=== PATIENT | male | born 1995 | race American Indian/Alaskan Native ===

== ENCOUNTER 2019-03-05 09:51 | Emergency (ER) | payer OTHER ==
[2019-03-05 09:57] VITALS: BP 120/61
--- NOTE | 2019-03-05 10:30 | Emergency Department Report ---
Chief Complaint: Dizziness Stated Complaint: GENERAL SICKNESS - HPI History of Present Illness: This is a 24-year-old -[place] male who presents to the emergency room with dizziness and palpitations. Patient states he was out last night and returned home around 0600 and took nyquil for URI symptoms. We awoke from sleep 30 minutes prior to arrival and felt palpitations and dizziness. He was afraid he would have a syncopal episode so he called EMS. He reports feeling sleeping but better than prior arrival. He denies chest pain, shortness of breath, radiating pain, fever, or diaphoresis. - Exam Vital Signs: Vital Signs 03/05/19 09:55 Temperature 98.4 F Pulse Rate 58 L Respiratory 18 Rate Blood Pressure 120/61 O2 Sat by Pulse 98 Oximetry Physical Exam: GENERAL: The patient is well looking, in no acute distress. HEENT: Atraumatic and normocephalic. Pupils are equal, round, reactive to light, and accommodation. Extraocular movements are intact. There is no icterus, cyanosis, or pallor of the conjunctivae. Tympanic membranes normal bilaterally. Nasal turbinates are clear without exudates. Sinuses nontender to percussion. Posterior pharynx is normal. No exudates are noted. CHEST: Air entry is adequate bilaterally with no rhonchi, and crackles. HEART: Sounds 1 and 2 are heard and are normal. Regular rate and rhythm, no tachycardic, murmurs, gallops, or rubs. ABDOMEN: Soft and nontender. Bowel sounds are present and normal. There is no hepatosplenomegaly. SKIN: Without rash. EXTREMITIES: Without edema, cyanosis, or clubbing. MSE screening note: Focused history and physical exam performed. Due to findings the following was ordered: This initial assessment/diagnostic orders/clinical plan/treatment(s) is/are subject to change based on patients health status, clinical progression and re- assessment by fellow clinical providers in the ED. Further treatment and workup at subsequent clinical providers discretion. Patient/guardian urged not to elope from the ED as their condition may be serious if not clinically assessed and managed. ED Medical Decision Making - Medical Decision Making Disposition was seen by this provider. Vitals are normal and patient is stable. Patient has experienced some side effects from taken NyQuil will 4 hours prior to arrival. He reports palpitations and dizziness has resolved. He denies chest pain, shortness of breath, or radiating pain. There is no indication of further workup. Patient has called someone to retrieve him. He was instructed to increase fluid intake and rest. Return to the emergency room if symptoms are worsening. He was discharged home stable. ED Disposition for MSE Clinical Impression: Episode of dizziness, Feared complaint without diagnosis Disposition: DC-01 TO HOME OR SELFCARE Is pt being admited?: No Condition: Stable Instructions: Dizziness (ED) Additional Instructions: Increased fluid intake and rest. Return to the emergency room if symptoms are worsening after 6-8 hours. Referrals: MEMO AMADOR MD [Primary Care Provider] - 3-5 Days [facility] [place] [Outside] - 3-5 Days [facility] [Outside] - 3-5 Days Time of Disposition: 10:35
== END 2019-03-05 10:52 | disposition home or self-care (01) ==
LOC: ED 09:51
DX: R42 Dizziness and giddiness (principal); R00.2 Palpitations